=== PATIENT | male | born 1960 | race Caucasian/White ===

== ENCOUNTER → 2017-12-27 | Outpatient (CLI) | payer BC ==
--- NOTE | 2017-12-27 20:37 | CONS ---
CONSULTATION REASON FOR EVALUATION: Sleep apnea. I am seeing this patient after 4 years of interruption. The patient was diagnosed having obstructive sleep apnea back in 2013 and at that time, the patient had an AHI of 92 consistent with severe disease and was offered a CPAP machine at a pressure of 11 cm of water. Over the past 4 years the patient has been getting his supplies on a regular basis. He has been very compliant with CPAP machine. He has gained around 20 pounds. His compliance data showed that the patient has been averaging around 7 hours and 36 minutes on his CPAP every night and his CPAP use for more than 4 hours is 100%. He is looking for a followup and a different mask interface and currently is using a Contreras FX nose pillow. No other new onset medical problems or comorbidities and his condition has been essentially stable over the past 4 years. No restlessness lower extremities. No sleep paralysis. No hallucinations. No nightmares. No sleepwalking or sleep talking. No anxiety. No depression. No other complaints otherwise. PAST MEDICAL HISTORY: 1. Obstructive sleep apnea. Detailed discussed above. His disease has been severe with a baseline AHI of 92. 2. Hyperlipidemia. 3. Hypertension. 4. Obesity. 5. Coronary artery disease. PAST SURGICAL HISTORY: Cardiac catheterization, previous insertion of a coronary stent. SOCIAL HISTORY: The patient is a nonsmoker. No history of alcohol. No IV drugs. OUTPATIENT MEDICATION LIST: Includes Coreg, Zocor, Plavix, lisinopril, folic acid, aspirin and vitamin D. FAMILY HISTORY: The patient has negative history for any sleep breathing disorder. No family history of narcolepsy. REVIEW OF SYSTEMS: 12-point review of system was done and positive findings are mentioned above in history of present illness. His current [place] score is at 3. No fever or chills. Positive weight gain in the order of 20 pounds over the past 4 years. No snoring while on the CPAP machine. No falling asleep while driving or doing activities of day-to-day life. PHYSICAL EXAMINATION: BP is 135/93, pulse 82, respirations 16, temperature 98.0. Saturation 97% on room air. Weight is 241. Height is 6 0 and neck size 18 inches. General appearance: Calm comfortable. Head is atraumatic, normocephalic. Neck is short. Mallampati class IV. There is no goiter or neck mass. LUNGS: Diminished breath sounds bilaterally otherwise clear. HEART: Sounds regular rhythm. Normal S1, S2. No S3. No murmurs. ABDOMEN: Soft, nontender. No organomegaly. EXTREMITIES: No edema. No cyanosis or clubbing. NEUROLOGIC: The patient is alert x3. There is no focal neurological deficits. PSYCHIATRIC: Appropriate mood and affect. Skin is negative for any wounds or ulceration. IMPRESSION: 1. Severe symptomatic obstructive sleep apnea with an AHI of 92 currently on CPAP pressure of 11. Treatment has been successful despite his 20 pounds weight gain over the past 2 years. He is very compliant averaging more than 7 hours of CPAP use per night. 2. Hypersomnia recovered while on CPAP therapy. 3. Obesity with a BMI of 32.6. 4. Coronary artery disease. 5. Hypertension. 6. Hyperlipidemia. PLAN: 1. We will fit this patient to an AirFit P10 nose mask/pillow medium size. 2. Renew his CPAP supplies including tubing filters and head gear. 3. Encourage weight loss. 4. His compliant and treatment has been successful and we will see him back in a year's time, earlier if needed. [id number] / JANESN: [id number] /
== END | disposition home or self-care (01) ==
LOC: SLEEP 12:57
PROVIDERS: ATTEND Internal Medicine Critical Care Medicine
DX: G47.33 Obstructive sleep apnea (adult) (pediatric) (principal); G47.10 Hypersomnia, unspecified; E66.9 Obesity, unspecified; I25.10 Atherosclerotic heart disease of native coronary artery without angina pectoris; I10 Essential (primary) hypertension; E78.5 Hyperlipidemia, unspecified; Z99.89 Dependence on other enabling machines and devices; Z79.899 Other long term (current) drug therapy; Z79.82 Long term (current) use of aspirin; Z68.32 Body mass index [BMI] 32.0-32.9, adult
CPT/HCPCS: 99211

== ENCOUNTER → 2018-03-15 | Outpatient (CLI) | payer BC ==
--- NOTE | 2018-03-15 14:35 | CT ---
EXAMINATION TYPE: CT abdomen pelvis w con DATE OF EXAM: 03/15/2018 COMPARISON: NONE HISTORY: Patient complains of RLQ pain. CT DLP: 1881 mGycm CONTRAST: CT scan of the abdomen and pelvis is performed with Oral Contrast and with IV Contrast, patient injec rigoberto with 100 mL of Isovue 300. FINDINGS: LUNG BASES-: No visible nodule. No infiltrate. LIVER/GB: No calcified gallstones. No space occupying hepatic lesion. Biliary tree is of normal ca liber. PANCREAS: No inflammation. No distinct mass. SPLEEN: No splenic enlargement. No lesion seen. ADRENALS: No nodule. No thickening. KIDNEYS/BLADDER: No hydronephrosis. No nephrolithiasis. No distinct renal mass. Urinary bladder g rossly unremarkable. BOWEL: Normal appendix. Normal bowel caliber. No inflammation. GENITAL ORGANS: No gross abnormality. LYMPH NODES: No greater than 1cm abdominal or pelvic lymph nodes are appreciated. AORTA: No significant abnormality. OSSEOUS STRUCTURES: No significant abnormality is seen. OTHER: Right perianal wall thickening may reflect cellulitis. No visible abscess at this time. IMPRESSION: 1. Right perianal cellulitis without abscess at this time.
== END | disposition home or self-care (01) ==
LOC: RADCTMAIN 11:52
PROVIDERS: ATTEND Internal Medicine
DX: L03.315 Cellulitis of perineum (principal)
CPT/HCPCS: 74177; Q9967

== ENCOUNTER 2019-09-16 19:42 | Observation (INO) | payer BC ==
[2019-09-16] MEDS ORDERED: ASPIRIN 81 MG PO STA (20:53)
[2019-09-16 21:25] LABS: HCT 45.9 % (39.0-53.0); HGB 15.8 gm/dL (13.0-17.5); MCH 32.7 pg (25.0-35.0); MCHC 34.3 g/dL (31.0-37.0); MCV 95.1 fL (80.0-100.0); Mean Platelet Volume 6.9; Platelet Count 153 k/uL (150-450); RBC 4.83 m/uL (4.30-5.90); RDW 12.1 % (11.5-15.5); WBC 4.4 k/uL (3.8-10.6)
--- NOTE | 2019-09-16 21:31 | XR ---
EXAMINATION TYPE: XR chest 2V DATE OF EXAM: 09/16/2019 COMPARISON: To 414 HISTORY: Cough TECHNIQUE: 2 views FINDINGS: Heart is normal. Lungs are clear of infiltrate. Costophrenic angles are clear. There are ch est leads. Bony thorax is intact. IMPRESSION: No active cardiopulmonary disease. Normal heart.
[2019-09-16 21:33] LABS: ALT 74 U/L (4-49); AST 69 U/L (17-59); African American GFR (CKD) >90 (>60 ml/min/1.73 sqM); Albumin 4.5 g/dL (3.5-5.0); Alkaline Phosphatase 54 U/L (38-126); Anion Gap 10 mmol/L; Blood Urea Nitrogen 13 mg/dL (9-20); Calcium 9.5 mg/dL (8.4-10.2); Carbon Dioxide 29 mmol/L (22-30); Chloride 95 mmol/L (98-107); Glucose 118 mg/dL (74-99); Non-African American GFR(CKD) 78 (>60 ml/min/1.73 sqM); Potassium 4.1 mmol/L (3.5-5.1); Sodium 134 mmol/L (137-145); Total Bilirubin 0.9 mg/dL (0.2-1.3); Total Protein 7.4 g/dL (6.3-8.2)
[2019-09-16 21:36] LABS: INR 1.1 (<1.2); Partial Thromboplastin Time 27.2 sec (22.0-30.0); Prothrombin Time 11.5 sec (9.0-12.0)
[2019-09-16 22:01] VITALS: RESP 18
[2019-09-16] MEDS ORDERED: ACETAMINOPHEN TAB 325 MG TAB PO STA (22:01)
[2019-09-16] MEDS ORDERED: SODIUM CHLORIDE 0.9% 500 ML 500 ML IV STA (22:30)
[2019-09-16 22:37] LABS: Band Neutrophils % 11 %; Lymphocytes # (M) 0.31 k/uL (1.0-4.8); Monocytes # (M) 0.66 k/uL (0-1.0); Neutrophils % (M) 67 %; Nucleated Red Blood Cells 0 /100 WBC (0-0); Total Cells Counted 100
[2019-09-16 22:41] LABS: Appearance,Urine Clear (Clear); Bilirubin,Urine Negative (Negative); Blood,Urine Trace (Negative); Color,Urine Yellow; Glucose,Urine (UA) Negative (Negative); Ketones,Urine 1+ (Negative); Leukocyte Esterase,Urine Negative (Negative); Mucus,Urine Rare /hpf; Nitrite,Urine Negative (Negative); PH, Urine 5.5 (5.0-8.0); Protein,Urine Negative (Negative); RBC,Urine <1 /hpf (0-5); Specific Gravity,Urine 1.018 (1.001-1.035); Urobilinogen,Urine <2.0 mg/dL (<2.0)
[2019-09-16] MEDS ORDERED: NITROGLYCERIN SL TABS 0.4 MG TAB SUBLINGUAL PRN (22:51)
--- NOTE | 2019-09-16 22:59 | ED ---
General Adult HPI - General Chief complaint: Chest Pain Stated complaint: Shoulder pain Time Seen by Provider: 09/16/19 20:29 Source: patient, RN notes reviewed, old records reviewed Mode of arrival: ambulatory Limitations: no limitations - History of Present Illness Initial comments: 58-year-old male patient with past history significant for myocardial infarction in 2000 and stent placement presents to ED for chief complaint of right shoulder dull pain, vision reports the pain has radiated down his right parasternal region once or twice but is generally in the right shoulder. Patient reports that these are similar symptoms that he had when he presented to the hospital in 2000. Patient also reports he has had some mild cough and congestion the last few days. Reports that his children have upper respiratory infections. Denies any other complaints at this time. Reports his breathing at baseline. Systemic: Pt denies fatigue, fever/chills, rash. Pt denies weakness, night sweats, weight loss. Neuro: Pt denies headache, visual disturbances, syncope or pre-syncope. HEENT: Pt denies ocular discharge or irritation, otalgia, rhinorrhea, pharyn gitis or notable lymphadenopathy. Cardiopulmonary: Pt denies chest pain, SOB, heart palpitations, dyspnea on exertion. Abdominal/GI: Pt denies abdominal pain, n/v/d. : Pt denies dysuria, burning w/ urination, frequency/urgency. Denies new onset urinary or bowel incontinence. MSK: Pt denies myalgia, loss of strength or function in extremities. Neuro: Pt denies new onset weakness, paresthesias. - Related Data Home Medications Medication Instructions Recorded Confirmed Aspirin 81 mg PO DAILY 12/27/14 12/27/14 Carvedilol Phosphate [Coreg Cr] 10 mg PO HS 12/27/14 12/27/14 Clopidogrel [Plavix] 75 mg PO DAILY 12/27/14 12/27/14 Folic Acid 1 mg PO DAILY 12/27/14 12/27/14 Lisinopril [Prinivil] 20 mg PO HS 12/27/14 12/27/14 Simvastatin [Zocor] 40 mg PO HS 12/27/14 12/27/14 Allergies Allergy/AdvReac Type Severity Reaction Status Date / Time Penicillins Allergy Unknown Verified 09/16/19 19:56 Childhood Sulfa (Sulfonamide Allergy Rash/Hives Verified 12/29/19 19:56 Antibiotics) Review of Systems ROS Statement: Those systems with pertinent positive or pertinent negative responses have been documented in the HPI. ROS Other: All systems not noted in ROS Statement are negative. Past Medical History Past Medical History: Hypertension, Myocardial Infarction ([place]), Sleep Ap jacinto/CPAP/BIPAP Additional Past Medical History / Comment(s): uses CPAP, hx colon polyp Last Myocardial Infarction Date:: 2000 History of Any Multi-Drug Resistant Organisms: None Reported Past Surgical History: Heart Catheterization With Stent, Tonsillectomy Past Anesthesia/Blood Transfusion Reactions: No Reported Reaction Date of Last Stent Placement:: 2000 Smoking Status: Never smoker General Exam - General Exam Comments Initial Comments: Constitutional: NAD, AOX3, Pt has pleasant affect. HEENT: NC/AT, trachea midline, neck supple, no lymphadenopathy. Posterior pharynx non erythematous, without exudates. External ears appear normal, without discharge. Mucous membranes moist. Eyes PERRLA, EOM intact. There is no scleral icterus. No pallor noted. Cardiopulmonary: RRR, no murmurs, rubs or gallops, no JVD noted. Lungs CTAB in anterior and posterior oakes. No peripheral edema. Abdominal exam: Abdomen soft and non-distended. Abdomen non-tender to palpation in all 4 quadrants. Bowel sounds active in LLQ. No hepatosplenomegaly. No ecc hymosis Neuro: CN II-XII grossly intact. No nuchal rigidity. No raccon eyes, no gresham sign, no hemotympanum. No cervical spinal tenderness. MSK: No posterior calf tenderness bilaterally, homans sign negative bilaterally. Posterior tibialis and radial pulse +2 bilaterally. Sensation intact in upper and lower extremities. Full active ROM in upper and lower extremities, 5/5 stregnth. Limitations: no limitations Course Vital Signs 09/16/19 09/16/19 19:53 22:00 Temperature 99.8 F H 101.7 F H Pulse Rate 107 H 101 H Respiratory 20 18 Rate Blood Pressure 139/82 103/73 O2 Sat by Pulse 96 94 L Oximetry Medical Decision Making - Medical Decision Making 58-year-old male patient with past history significant for myocardial infarction in 2000 and stent placement presents to ED for chief complaint of right shoulder dull pain, vision reports the pain has radiated down his right parasternal region once or twice but is generally in the right shoulder. Patient reports that these are similar symptoms that he had when he presented to the hospital in 2000. Patient also reports he has had some mild cough and congestion the last few days. Reports that his children have upper respiratory infections. Denies any other complaints at this time. Reports his breathing at baseline. Vital signs a mild fever, patient administered antipyretic. Physical exam didn't display acute pathology. Laboratory investigations are overall unremarkable. Troponin is negative. Influenza is negative. Chest good negative. Patient be admitted for serial troponins, ACS rule out, fever. Case discussed with Dr. Nickerson. - Lab Data Result diagrams: 09/16/19 21:09/16/19 21: Lab Results 09/16/19 09/16/19 09/16/19 Range/Units 21: 21: 21: WBC 4.4 (3.8-10.6) k/uL RBC 4.83 (4.30-5.90) m/uL Hgb 15.8 (13.0-17.5) gm/dL Hct 45.9 (39.0-53.0) % MCV 95.1 (80.0-100.0) fL MCH 32.7 (25.0-35.0) pg MCHC 34.3 (31.0-37.0) g/dL RDW 12.1 (11.5-15.5) % Plt Count 153 (150-450) k/uL Neutrophils % (Manual) 67 % Band Neutrophils % 11 % Lymphocytes % (Manual) 7 % Monocytes % (Manual) 15 % Neutrophils # (Manual) 3.40 (1.3-7.7) k/uL Lymphocytes # (Manual) 0.31 L (1.0-4.8) k/uL Monocytes # (Manual) 0.66 (0-1.0) k/uL Nucleated RBCs 0 (0-0) /100 WBC Manual Slide Review Performed PT 11.5 (9.0-12.0) sec INR 1.1 (<1.2) APTT 27.2 (22.0-30.0) sec Sodium 134 L (137-145) mmol/L Potassium 4.1 (3.5-5.1) mmol/L Chloride 95 L (98-107) mmol/L Carbon Dioxide 29 (22-30) mmol/L Anion Gap 10 mmol/L BUN 13 (9-20) mg/dL Creatinine 1.06 (0.66-1.25) mg/dL Est GFR (CKD-EPI)AfAm >90 (>60 ml/min/1.73 sqM) Est GFR (CKD-EPI)NonAf 78 (>60 ml/min/1.73 sqM) Glucose 118 H (74-99) mg/dL Calcium 9.5 (8.4-10.2) mg/dL Total Bilirubin 0.9 (0.2-1.3) mg/dL AST 69 H (17-59) U/L ALT 74 H (4-49) U/L Alkaline Phosphatase 54 (38-126) U/L Troponin I (0.000-0.034) ng/mL Total Protein 7.4 (6.3-8.2) g/dL Albumin 4.5 (3.5-5.0) g/dL Urine Color Urine Appearance (Clear) Urine pH (5.0-8.0) Ur Specific [place] (1.001-1.035) Urine Protein (Negative) Urine Glucose (UA) (Negative) Urine Ketones (Negative) Urine Blood (Negative) Urine Nitrite (Negative) Urine Bilirubin (Negative) Urine Urobilinogen (<2.0) mg/dL Ur Leukocyte Esterase (Negative) Urine RBC (0-5) /hpf Urine Mucus (None) /hpf Influenza Type A RNA (Not Detectd) Influenza Type B (PCR) (Not Detectd) 09/16/19 09/16/19 09/16/19 Range/Units 21:01 21:01 22:33 WBC (3.8-10.6) k/uL RBC (4.30-5.90) m/uL Hgb (13.0-17.5) gm/dL Hct (39.0-53.0) % MCV (80.0-100.0) fL MCH (25.0-35.0) pg MCHC (31.0-37.0) g/dL RDW (11.5-15.5) % Plt Count (150-450) k/uL Neutrophils % (Manual) % Band Neutrophils % % Lymphocytes % (Manual) % Monocytes % (Manual) % Neutrophils # (Manual) (1.3-7.7) k/uL Lymphocytes # (Manual) (1.0-4.8) k/uL Monocytes # (Manual) (0-1.0) k/uL Nucleated RBCs (0-0) /100 WBC Manual Slide Review PT (9.0-12.0) sec INR (<1.2) APTT (22.0-30.0) sec Sodium (137-145) mmol/L Potassium (3.5-5.1) mmol/L Chloride (98-107) mmol/L Carbon Dioxide (22-30) mmol/L Anion Gap mmol/L BUN (9-20) mg/dL Creatinine (0.66-1.25) mg/dL Est GFR (CKD-EPI)AfAm (>60 ml/min/1.73 sqM) Est GFR (CKD-EPI)NonAf (>60 ml/min/1.73 sqM) Glucose (74-99) mg/dL Calcium (8.4-10.2) mg/dL Total Bilirubin (0.2-1.3) mg/dL AST (17-59) U/L ALT (4-49) U/L Alkaline Phosphatase (38-126) U/L Troponin I <0.012 (0.000-0.034) ng/mL Total Protein (6.3-8.2) g/dL Albumin (3.5-5.0) g/dL Urine Color Yellow Urine Appearance Clear (Clear) Urine pH 5.5 (5.0-8.0) Ur Specific [place] 1.018 (1.001-1.035) Urine Protein Negative (Negative) Urine Glucose (UA) Negative (Negative) Urine Ketones 1+ H (Negative) Urine Blood Trace H (Negative) Urine Nitrite Negative (Negative) Urine Bilirubin Negative (Negative) Urine Urobilinogen <2.0 (<2.0) mg/dL Ur Leukocyte Esterase Negative (Negative) Urine RBC <1 (0-5) /hpf Urine Mucus Rare H (None) /hpf Influenza Type A RNA Not Detected (Not Detectd) Influenza Type B (PCR) Not Detected (Not Detectd) - EKG Data -: EKG Interpreted by Me (and Dr. Nickerson) EKG Comments: 1) ventricular 106, when necessary for 172, QRS 84, QT/QTC 314 since 417. Sinus tachycardia, possible left atrial enlargement, septal infarct age undetermined. No concern for acute ischemia at this time. 2) ventricular 103, para insulin 78, QRS 84, QT/QTC 320 since 419. Sinus tachycardia, left axis deviation, septal infarct age interment. Abnormal EKG. No concern for acute ischemia this time. Disposition Clinical Impression: Shoulder pain, Fever Narrative: Rule out ACS equivalent Disposition: ADMITTED IP TO THIS HOSP Condition: Serious Is patient prescribed a controlled substance at d/c from ED?: No Referrals: Brayan Veras MD [Primary Care Provider] - 1-2 days
--- NOTE | 2019-09-17 01:40 | P.HPIM ---
History of Present Illness H&P Date: 09/17/19 The patient is a 58 yo M with a PMH of CAD ([place] in 2000 s/p 1 stent), HTN, and JUSTIN on CPAP presented to the ED with complaints of right shoulder pain since 4 PM today. The patient notes that the pain was 9/10 initially, with radiation to his right chest, non-exertional, with no associated symptoms. The patient denied SOB, nausea, vomiting, diaphoresis, or dizziness. He reported having similar symptoms in 2000 when he suffered an IA. At time of the interview, patient noted his pain had improved significantly to a 1/10. Patient notes that for the past 2 days, he had been feeling lethargic and had poor appetite. He notes that some of his family members have been suffering from colds, though he denied any cold symptoms including congestion, cough, runny nose, or facial pain. The patient underwent an extensive evaluation in the emergency room. The patient had a T-max of 101.7 with pulse of 107 and BP 108/74, with SpO2 94% on RA. EKG revealed a sinus tachycardia @ 106 bpm with CXR that was unremarkable. Laboratory evaluation revealed a Troponin of < 0.012, Influenza negative, WBC count of 4.4, hemoglobin 15.8, platelet 153, AST 69, ALT 74, sodium 134, potassium 4.1, chloride 95, CO2 29, BUN 13, creatinine 1.06, and glucose 118. UA was unremarkable. Review of Systems Pertinent positives and negatives as discussed in HPI, a complete review of systems was performed and all other systems are negative. Past Medical History Past Medical History: Hypertension, Myocardial Infarction ([place]), Sleep Apnea/CPAP/BIPAP Additional Past Medical History / Comment(s): uses CPAP, hx colon polyp Last Myocardial Infarction Date:: 2000 History of Any Multi-Drug Resistant Organisms: None Reported Past Surgical History: Heart Catheterization With Stent, Tonsillectomy Past Anesthesia/Blood Transfusion Reactions: No Reported Reaction Date of Last Stent Placement:: 2000 Smoking Status: Never smoker - Past Family History Father Family Medical History: Myocardial Infarction ([place]) Mother Family Medical History: No Reported History Medications and Allergies Home Medications Medication Instructions Recorded Confirmed Type Aspirin 81 mg PO HS 12/27/14 09/17/19 History Carvedilol Phosphate [Coreg Cr] 10 mg PO HS 12/27/14 09/17/19 History Clopidogrel [Plavix] 75 mg PO HS 12/27/14 09/17/19 History Folic Acid 1 mg PO HS 12/27/14 09/17/19 History Lisinopril [Prinivil] 20 mg PO HS 12/27/14 09/17/19 History Simvastatin [Zocor] 40 mg PO HS 12/27/14 09/17/19 History Allergies Allergy/AdvReac Type Severity Reaction Status Date / Time Penicillins Allergy Unknown Verified 09/17/19 00:30 Childhood Sulfa (Sulfonamide Allergy Rash/Hives Verified 09/17/19 00:30 Antibiotics) Physical Exam Vitals: Vital Signs Temp Pulse Resp BP Pulse Ox 09/16/19 22:55 99.3 F 96 18 108/74 94 L 09/16/19 22:00 101.7 F H 101 H 18 103/73 94 L 09/16/19 19:53 99.8 F H 107 H 20 139/82 96 Intake and Output 09/16/19 09/16/19 09/17/19 14:59 22:59 06:59 Other: # Voids 1 Weight 111.13 kg General: non toxic, no distress, appears at stated age, obese Derm: no unusual rashes/lesions no unusual ecchymoses, warm, dry Head: atraumatic, normocephalic, symmetric Eyes: EOMI, no lid lag, anicteric sclera, pupils equal round reactive to light ENT: Nose and ears atraumatic, no thrush, no pharyngeal erythema Neck: No thyromegaly, no cervical lymphadenopathy, trachea midline, supple Mouth: no lip lesion, mucus membranes moist Cardiovascular: S1S2 reg, no murmur, positive posterior tibial pulse bilateral, no edema, capillary refill less than 2 seconds Lungs: CTA bilateral, no rhonchi, no rales , no accessory muscle use Abdominal: soft, nontender to palpation, no guarding, no appreciable organomegaly, normal bowel sounds Ext: no gross muscle atrophy, muscle strength 5 out of 5 in all 4 extremities grossly, no contractures, Neuro: CN II-XI grossly intact, light touch intact all 4 extremities, finger to nose within normal limits, Psych: Alert, oriented, appropriate affect Results CBC & Chem 7: 09/16/19 21:01 09/16/19 21:01 Labs: Abnormal Lab Results - Last 24 Hours (Table) 09/16/19 09/16/19 09/16/19 Range/Units 21:01 21:01 22:33 Lymphocytes # (Manual) 0.31 L (1.0-4.8) k/uL Sodium 134 L (137-145) mmol/L Chloride 95 L (98-107) mmol/L Glucose 118 H (74-99) mg/dL AST 69 H (17-59) U/L ALT 74 H (4-49) U/L Urine Ketones 1+ H (Negative) Urine Blood Trace H (Negative) Urine Mucus Rare H (None) /hpf Assessment and Plan Plan: Chest pain, r/o ACS -C/w aspirin, plavix, statin -Cardiology consult -Trend troponin -Cardiac monitoring Fever -Possibly viral URI -Monitor for now Deranged LFTs -Unclear etiology, possibly secondary to current viral infection vs ORTIZ -Obtain RUQ US -Monitor for now HTN -Hold antihypertensives in setting of borderline BP JUSTIN -C/w CPAP DVT prophylaxis -Heparin The patient is admitted with an anticipated less than 2 midnight stay for ev aluation of chest pain CODE STATUS: Full Code Discussed with: Patient Anticipated discharge date: 1-[address]: Home A total of 35 minutes was spent on the care of this complex patient more than 50% of the time was spent in counseling and care coordination.
[2019-09-17] MEDS ORDERED: CLOPIDOGREL 75 MG TAB PO ONE (01:45)
[2019-09-17] MEDS ORDERED: ATORVASTATIN 80 MG TAB PO ONE (01:45)
[2019-09-17] MEDS: ACETAMINOPHEN TAB 325 MG TAB PO PRN ×2 (03:48→11:14)
[2019-09-17] MEDS: SODIUM CHLORIDE 0.9% 1,000 ML IV SCH ×2 (03:53→13:55)
[2019-09-17 04:23] LABS: ALT 68 U/L (4-49); AST 72 U/L (17-59); African American GFR (CKD) >90 (>60 ml/min/1.73 sqM); Albumin 4.2 g/dL (3.5-5.0); Alkaline Phosphatase 45 U/L (38-126); Anion Gap 11 mmol/L; Blood Urea Nitrogen 14 mg/dL (9-20); Calcium 9.3 mg/dL (8.4-10.2); Carbon Dioxide 25 mmol/L (22-30); Chloride 98 mmol/L (98-107); Glucose 119 mg/dL (74-99); Non-African American GFR(CKD) 84 (>60 ml/min/1.73 sqM); Potassium 3.6 mmol/L (3.5-5.1); Sodium 134 mmol/L (137-145); Total Bilirubin 0.9 mg/dL (0.2-1.3); Total Protein 6.9 g/dL (6.3-8.2)
[2019-09-17 04:34] LABS: Cholesterol 121 mg/dL (<200); HDL Cholesterol 40 mg/dL (40-60); LDL Cholesterol,Calculated 50 mg/dL (0-99); Triglycerides 153 mg/dL (<150)
--- NOTE | 2019-09-17 08:18 | CONS ---
CONSULTATION Mr. Espinal is a 58-year-old male with known history of hypertension, hyperlipidemia, known history of coronary artery disease who has sustained a myocardial infarction and received one stent in 2000. Details of that procedure is unavailable to me. Patient has underwent the procedure at [facility] who presented with initially symptoms of dizziness. The dizziness occurred over Tuesday and Tuesday and early Tuesday and Tuesday night he had discomfort in the right shoulder that woke him up from sleep. For the last few days he has not been feeling well. He has been feeling fatigued with lack of energy. He usually exercises at the [facility] on a regular basis and has no associated symptoms until Tuesday when he did not feel too well. The right shoulder discomfort was not positional and not associated with any dyspnea or palpitation. He has no PND, orthopnea, or peripheral edema. His coronary risk factors are remarkable for the history of hypertension and hyperlipidemia. MEDICATIONS: His medications at home include Coreg 10 mg daily, aspirin once a day, lisinopril 20 mg daily, folic acid, Plavix 75 mg daily, and simvastatin 40 mg daily. REVIEW OF SYSTEMS: RESPIRATORY SYSTEM: He has no recent wheezing. No cough. No fever. No history of documented obstructive lung disease. GI SYSTEM: No recent GI bleeding. No peptic ulcer disease. No nausea. No vomiting. SYSTEM: No dysuria or hematuria. NERVOUS SYSTEM: No stroke or seizure. PHYSICAL EXAMINATION: A 58-year-old male, alert, oriented, in no apparent distress. Blood pressure 110/70 with the heart rate in the 90s, temperature 101.5. HEAD: Normocephalic. EYES: Sclerae anicteric. NECK: Good carotid upstroke. No bruit. No jugular venous distention. LUNGS: Clear to auscultation. HEART: Regular rate and rhythm. S1, S2. No S3. No S4. No murmur or rub. ABDOMEN: Soft, nontender. Positive bowel sounds. No organomegaly. EXTREMITIES: No edema. Intact distal pulses. LAB DATA: Lab data revealed a BUN and creatinine of 14 and 0.99. Troponin of less than 0.012. Cholesterol of 121 with an LDL of 50. AST of 72, ALT of 68. Hemoglobin of 15.8, white blood cell of 4.4. EKG revealed sinus mechanism with left axis deviation poor R progression connects with anteroseptal myocardial infarction. Chest x-ray revealed no acute infiltrate. IMPRESSION: 1. Shoulder discomfort, atypical for ischemic heart disease probably noncardiac. 2. Febrile episode, etiology unclear with elevated liver function tests. According to the patient, he had some elevation of liver function tests in the past related to his statin treatment. 3. History of coronary artery disease. 4. Hypertension. 5. Hyperlipidemia. RECOMMENDATION: From the cardiac standpoint, I will obtain echocardiogram with Doppler. I will also obtain ultrasound of the right upper quadrant to rule out any evidence of cholelithiasis and depending on the rest of the testing, further recommendations will be made. Thank you for this consult. We will follow with you. STACY / IJN: [id number] /
[2019-09-17] MEDS ORDERED: ASPIRIN 81 MG PO SCH (09:00)
[2019-09-17] MEDS ORDERED: HEPARIN SODIUM,PORCINE 5,000 UNIT/ML 1 ML VIAL SQ SCH (09:00)
[2019-09-17] MEDS ORDERED: ASPIRIN 325 MG TAB PO SCH (09:00)
[2019-09-17] MEDS ORDERED: CLOPIDOGREL 75 MG TAB PO SCH (09:00)
--- NOTE | 2019-09-17 11:14 | US ---
EXAMINATION TYPE: US abdomen limited DATE OF EXAM: 09/17/2019 COMPARISON: NONE CLINICAL HISTORY: RUQ, abnormal LFTs. EXAM MEASUREMENTS: Liver Length: 18.7 cm Gallbladder Wall: 0.1 cm CBD: 0.5 cm Right Kidney: 12.8 x 4.2 x 5.7 cm Patient of large body habitus. Pancreas: Obscured by bowel gas Liver: left lobe partially obscured by bowel gas, increased attenuation, measures large Gallbladder: wnl CBD: wnl Right Kidney: parapelvic cysts noted, measures large IMPRESSION: 1. Hepatomegaly and increased pattern to the liver which can be associated with hepatic steatosis, he patocellular disease or hepatitis.
[2019-09-17 11:49] VITALS: BP 115/69; PULSE 85; TEMP 100.2
--- NOTE | 2019-09-17 13:31 | ECHOF ---
Referral Reason:chest pain MEASUREMENTS -------- HEIGHT: 182.9 cm WEIGHT: 111.1 kg BP: 110/70 RVIDd: 2.9 cm (< 3.3) IVSd: 1.4 cm (0.6 - 1.1) LVIDd: 4.9 cm (3.9 - 5.3) LVPWd: 1.4 cm (0.6 - 1.1) IVSs: 1.8 cm LVIDs: 3.8 cm LVPWs: 1.8 cm LA Diam: 3.7 cm (2.7 - 3.8) LAESV Index (A-L): 20.21 ml/m Ao Diam: 3.7 cm (2.0 - 3.7) AV Cusp: 2.4 cm (1.5 - 2.6) MV EXCURSION: 20.130 mm (> 18.000) MV EF SLOPE: 94 mm/s (70 - 150) EPSS: 0.8 cm MV E Manoj: 0.96 m/s MV DecT: 185 ms MV A Manoj: 0.76 m/s MV E/A Ratio: 1.27 RAP: 5.00 mmHg RVSP: 15.73 mmHg TAPSE: 17.66 mm FINDINGS -------- Sinus rhythm. This was a technically difficult study with suboptimal views. The left ventricular size is normal. There is moderate concentric left ventricular hypertrophy. O verall left ventricular systolic function is normal with, an EF between 55 - 60 %. The right ventricle is normal in size. Normal LA size by volume 22+/-6 ml/m2. The right atrial size is normal. 5 ml of Lumason was utilized for enhancement of images. Interatrial and interventricular septum intact. The aortic valve is trileaflet, and appears structurally normal. No aortic stenosis or regurgitation. The mitral valve is normal. There is trace to mild mitral regurgitation. Mild tricuspid regurgitation present. Right ventricular systolic pressure is normal at < 35 mmHg. The pulmonic valve was not well visualized. There is no pulmonic regurgitation present. The aortic root size is normal. IVC Not well visulized. There is no pericardial effusion. CONCLUSIONS -------- 1. Sinus rhythm. 2. This was a technically difficult study with suboptimal views. 3. The left ventricular size is normal. 4. There is moderate concentric left ventricular hypertrophy. 5. Overall left ventricular systolic function is normal with, an EF between 55 - 60 %. 6. Normal LA size by volume 22+/-6 ml/m2. 7. 5 ml of Lumason was utilized for enhancement of images. 8. The aortic valve is trileaflet, and appears structurally normal. No aortic stenosis or regurgitati on. 9. The mitral valve is normal. 10. There is trace to mild mitral regurgitation. 11. Mild tricuspid regurgitation present. 12. Right ventricular systolic pressure is normal at < 35 mmHg. 13. The pulmonic valve was not well visualized. 14. There is no pericardial effusion. DOMINATRIX: Loly Campbell RDCS
[2019-09-17] MEDS: CARVEDILOL 3.125 MG TAB PO SCH ×2 (13:51→17:23)
--- NOTE | 2019-09-17 15:24 | P.DS ---
Providers Date of admission: 09/16/19 23:18 Expected date of discharge: 09/17/19 Attending physician: Marcial Cope MD Consults: 09/16/19 22:52 Consult Physician Urgent Consulting Provider: Cami Sandoval Consult Reason/Comments: shoulder pain r/o ACS equivleent Do you want consulting provider notified?: Yes Primary care physician: [facility] Course: 58-year-old male with PMH of CAD post stent, hypertension, JUSTIN on CPAP presented to the ED for right shoulder pain. Patient was noted to have a T-max of 101.7 with a pulse of 107 in the emergency room. EKG showed sinus tachycardia 106 bpm and troponin was less than 0.012. Influenza was negative. Chest x-ray was negative. Patient was admitted for further observation. Troponins have been less than 0.0123 with EKG showing sinus tachycardia. Acute coronary syndrome has been ruled out. Lipid panel was done which showed triglycerides of 153, LDL 50, total cholesterol 121. Cardiology was consulted and recommended echocardiogram. Echocardiogram showed EF 55-60% with moderate concentric LVH. Right upper quadrant ultrasound was ordered due to elevated liver enzymes which showed fatty liver. His fever was attribute it to a possible viral URI as he had symptoms of nasal congestion, cough and runny nose. Patient was seen and examined. No acute events overnight. Patient reports complete resolution of chest pain. He denies any chest pain, shortness of breath or palpitations. No nausea or vomiting. Patient is alert and oriented 3 He is in no acute distress. His head is normocephalic atraumatic. Chest pain likely related to right shoulder pain Fever likely viral URI Transaminitis Hypertension JUSTIN CAD ACS ruled out. Echocardiogram shows EF 55-60% with moderate concentric LVH. Plans: Continue aspirin, Lipitor and Plavix. Continue beta jerel. Follow cardiology recommendations. T-max 101.7 Fahrenheit. Likely viral URI. Chest x-ray negative. Plans: Tylenol as needed for fever and chills. Symptomatic management of viral URI. AST 72, ALT 68. Right upper quadrant ultrasound shows fatty liver. Lipid panel within normal limits except triglyceride of 153. Plans: Dietary modifications. Continue Lipitor. BP 115/69. Plans: Continue beta jerel. Monitor vitals, adjust medications as necessary. Plans: CPAP as needed. Plans: Continue aspirin, Plavix, Lipitor, beta jerel. [Acute coronary syndrome has been ruled out. Plans on DC home today if okay with cardiology.] Pertinent Studies: Chest x-ray, abdominal ultrasound, echocardiogram Patient Condition at Discharge: Stable Plan - Discharge Summary New Discharge Prescriptions: New Acetaminophen Tab [Tylenol] 650 mg PO Q4HR PRN #30 tab PRN Reason: Pain Continue Folic Acid 1 mg PO HS Clopidogrel [Plavix] 75 mg PO HS Aspirin 81 mg PO HS Simvastatin [Zocor] 40 mg PO HS Carvedilol Phosphate [Coreg Cr] 10 mg PO HS Lisinopril-Hctz 20-25 mg [Zestoretic 20-25] 1 tab PO HS Latanoprost [Xalatan 0.005%] 1 drop LEFT EYE HS Cholecalciferol [Vitamin D3 (25 Mcg = 1000 Iu)] 3,000 unit PO HS Roff-3 Fatty Acids/Fish Oil [Fish Oil 1,000 mg Softgel] 1 cap PO HS Discharge Medication List Aspirin 81 mg PO HS 12/27/14 [History] Carvedilol Phosphate [Coreg Cr] 10 mg PO HS 12/27/14 [History] Clopidogrel [Plavix] 75 mg PO HS 12/27/14 [History] Folic Acid 1 mg PO HS 12/27/14 [History] Simvastatin [Zocor] 40 mg PO HS 12/27/14 [History] Acetaminophen Tab [Tylenol] 650 mg PO Q4HR PRN #30 tab 09/17/19 [Rx] Cholecalciferol [Vitamin D3 (25 Mcg = 1000 Iu)] 3,000 unit PO HS 09/17/19 [History] Latanoprost [Xalatan 0.005%] 1 drop LEFT EYE HS 09/17/19 [History] Lisinopril-Hctz 20-25 mg [Zestoretic 20-25] 1 tab PO HS 09/17/19 [History] Roff-3 Fatty Acids/Fish Oil [Fish Oil 1,000 mg Softgel] 1 cap PO HS 09/17/19 [History] Follow up Appointment(s)/Referral(s): Brayan Veras MD [Primary Care Provider] - 1-2 days Activity/Diet/Wound Care/Special Instructions: Diet: Cardiac Follow-up PCP within 3 days of discharge. Take all medications as advised. Come back to the ED or call 911 for worsening chest pain, shortness of breath, palpitations, dizziness. Discharge Disposition: HOME SELF-CARE
[2019-09-18] MEDS ORDERED: ATORVASTATIN 40 MG TAB PO SCH (09:00)
== END 2019-09-17 17:35 | disposition home or self-care (01) ==
LOC: EC 19:42 → 1SOBS 23:18
PROVIDERS: ADMIT Internal Medicine; ATTEND Internal Medicine
DX: R07.9 Chest pain, unspecified (principal); M25.511 Pain in right shoulder; R50.9 Fever, unspecified; I25.10 Atherosclerotic heart disease of native coronary artery without angina pectoris; Z95.5 Presence of coronary angioplasty implant and graft; I25.2 Old myocardial infarction; I10 Essential (primary) hypertension; G47.33 Obstructive sleep apnea (adult) (pediatric); Z99.89 Dependence on other enabling machines and devices; Z86.010 Personal history of colon polyps; K76.0 Fatty (change of) liver, not elsewhere classified; E78.5 Hyperlipidemia, unspecified; R79.89 Other specified abnormal findings of blood chemistry; I08.1 Rheumatic disorders of both mitral and tricuspid valves; Z90.89 Acquired absence of other organs; Z79.02 Long term (current) use of antithrombotics/antiplatelets; Z79.82 Long term (current) use of aspirin; Z79.899 Other long term (current) drug therapy
CPT/HCPCS: 93005 ×2; 96372; 99285; 36415; 93306; 80061; 80053 ×2; 84484 ×2; 85025; 85610; 85730; 81001; 87502; 71046; 76705; G0378 ×2; J1644; Q9950

== ENCOUNTER → 2020-07-04 | Outpatient (CLI) | payer BC ==
--- NOTE | 2020-07-09 10:19 | P.ARTDOP ---
Arterial Doppler LOWER EXTREMITY ARTERIAL DOPPLER: DATE OF SERVICE: 07/04/2020 Reason for study: Foot heaviness. Doppler waveforms: Multiphasic bilaterally throughout. Excellent toe waveforms.. Pulse volume recording: []. Pressure gradients: None. Ankle-brachial indices: Greater than 1 bilaterally. Toe brachial indices: 0.84 on the right, 0.8 on the left Impression: Normal study.
== END | disposition home or self-care (01) ==
LOC: RADUSWWP 07:36
PROVIDERS: ATTEND Internal Medicine
DX: I73.9 Peripheral vascular disease, unspecified (principal)
CPT/HCPCS: 93922

== ENCOUNTER → 2021-10-01 | Outpatient (CLI) | payer BC ==
--- NOTE | 2021-10-02 08:26 | CT ---
EXAMINATION TYPE: CT chest w con DATE OF EXAM: 10/01/2021 COMPARISON: Chest x-ray September 16, 2019 HISTORY: chronic cough CT DLP: 568 mGycm. Automated Exposure Control for Dose Reduction was Utilized. TECHNIQUE: CT scan of the thorax is performed following with IV Contrast, patient injected with 100 mL of Isovue 300. FINDINGS: LUNGS: The lungs are grossly clear, there is no concerning greater than 5 mm noncalcified parenchymal mass or nodule identified. Minimal left basilar linear scarring and/or atelectasis. There is no ple ural effusion or pneumothorax seen. The tracheobronchial tree is patent. MEDIASTINUM: There are no greater than 1 cm hilar or mediastinal lymph nodes. There are some prominen t but subcentimeter prevascular lymph nodes. No cardiomegaly or pericardial effusion is seen. Asce nding aortic aneurysm up to 4.6 cm axial image 32. Aneurysm does not extend into arch or descending a saturnino. There is poor vessel origin from aortic arch which is normal variant OTHER: Liver is diffusely low dense consistent with diffuse fatty infiltration. Spine is straightened on sagittal images. IMPRESSION: No significant acute or chronic pulmonary process. Note is made of 4.6 cm ascending aorti c aneurysm
== END | disposition home or self-care (01) ==
LOC: RADCTMAIN 18:51
PROVIDERS: ATTEND Internal Medicine
DX: R05.3 Chronic cough (principal)
CPT/HCPCS: 71260; Q9967

== ENCOUNTER → 2022-05-05 | Outpatient (CLI) | payer BC ==
--- NOTE | 2022-05-05 11:32 | CT ---
EXAMINATION TYPE: CT angio chest DATE OF EXAM: 05/05/2022 10:03 AM COMPARISON: 10/01/2021 HISTORY: Thoracic aortic aneurysm w/out rupture CT DLP: 1083.80 mGycm Automated exposure control for dose reduction was used. CONTRAST: CTA scan of the thorax is performed with IV Contrast, patient injected with 100 mL of Isovue 370, pul monary embolism protocol. . FINDINGS: LUNGS: The lungs are grossly clear, there is no concerning parenchymal mass or nodule identified. T here is no pleural effusion or pneumothorax seen. The tracheobronchial tree is patent. MEDIASTINUM: There are no greater than 1 cm hilar or mediastinal lymph nodes. There are some prominen t but subcentimeter prevascular lymph nodes. No cardiomegaly or pericardial effusion is seen. Ascendi ng aortic aneurysm up to 4.6 cm stable. There is direct origin of the vertebral artery from the aorti c arch which is a normal variant. Correlate for previous coronary artery stenting. Heart enlarged wit h small pericardial effusion. OTHER: Liver is diffusely low dense consistent with diffuse fatty infiltration. Hypertrophic changes of the spine. Borderline splenomegaly measuring 13.5 cm. IMPRESSION: 1. Stable 4.6 cm ascending aortic aneurysm. 2. Cardiomegaly correlate for coronary artery stenting. Small amount of pericardial effusion. 3. Correlation with hepatic steatosis and borderline to mild splenomegaly.
== END | disposition home or self-care (01) ==
LOC: RADCTMAIN 08:58
PROVIDERS: ATTEND Internal Medicine Interventional Cardiology
DX: I71.2 Thoracic aortic aneurysm, without rupture (principal)
CPT/HCPCS: 71275; Q9967

== ENCOUNTER → 2022-08-23 | Outpatient (CLI) | payer BC ==
--- NOTE | 2022-08-23 08:13 | CT ---
EXAMINATION TYPE: CT brain wo con CT DLP: 1072.3 mGycm, Automated exposure control for dose reduction was used. DATE OF EXAM: 08/23/2022 7:12 AM COMPARISON: None. 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 Pt fell and struck frontal area on floor TECHNIQUE: Brain: Axial CT images of the brain were obtained with coronal and sagittal reformats created and rev iewed. Contrast used: None. Oral contrast used: None. FINDINGS: Brain: Extra-axial spaces: No abnormal extra-axial fluid collections. Ventricular system: Within normal limits Cerebral parenchyma: No acute intraparenchymal hemorrhage or mass effect. The simms-white junction is well differentiated. Cerebellum: Unremarkable. Mass effect: No evidence of midline shift. Intracranial vasculature: unremarkable Soft tissues: Normal. Calvarium/osseous structures: No depressed skull fracture. Paranasal sinuses and mastoid air cells: Mild scattered paranasal sinus disease. Visualized orbits: Bilateral aphakia IMPRESSION: No acute intracranial process.
== END | disposition home or self-care (01) ==
LOC: RADCTMAIN 06:55
PROVIDERS: ATTEND Internal Medicine
DX: G44.329 Chronic post-traumatic headache, not intractable (principal)
CPT/HCPCS: 70450

== ENCOUNTER → 2022-09-04 | Outpatient (CLI) | payer BC ==
--- NOTE | 2022-09-04 15:16 | MR ---
EXAMINATION TYPE: MR lumbar spine wo/w con DATE OF EXAM: 09/04/2022 2:32 PM COMPARISON: CT 03/15/2018. 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 IV Contrast: 12 cc Gadavist. None. FINDINGS: Alignment: The lumbar vertebral bodies have preserved heights and alignment. Cord: The conus medullaris and the distal spinal cord appear unremarkable with regards to their signa l intensity and morphology. No abnormal enhancement. Bones/Discs: Assess for high T2/T1 signal focal fat and/or hemangioma. Multilevel degenerative disc d isease is noted and most pronounced at the L5-S1. Intervertebral disc signal is maintained. No abnormal enhancement. L1-L2: No evidence of significant spinal canal stenosis or neural foraminal stenosis. L2-L3: No evidence of significant spinal canal stenosis or neural foraminal stenosis. L3-L4: No evidence of significant spinal canal stenosis or neural foraminal stenosis. L4-L5: Disc bulge and facet joint arthropathy result in mild spinal canal and moderate bilateral neur al foraminal stenosis. L5-S1: No evidence of significant spinal canal stenosis. Facet joint arthropathy with mild bilateral neural foraminal stenosis. Increased inversion recovery signal around the facet joints at this level. Other findings: Parapelvic left renal cysts IMPRESSION: 1. No definitive evidence of disc herniation or significant spinal canal stenosis. 2. Multilevel disc degeneration with associated osteoarthritic changes worse at L5-S1 with active ed robin around the facet joints of L5-S1.
== END | disposition home or self-care (01) ==
LOC: RADMRIMAIN 13:18
PROVIDERS: ATTEND Internal Medicine
DX: M47.16 Other spondylosis with myelopathy, lumbar region (principal); M51.06 Intervertebral disc disorders with myelopathy, lumbar region; R60.0 Localized edema
CPT/HCPCS: 72158; A9585

== ENCOUNTER 2023-06-03 11:59 | Emergency (ER) | payer BC ==
--- NOTE | 2023-06-03 12:55 | ED ---
General Adult HPI - General Chief complaint: Dizziness Stated complaint: lightheaded,arm numbness Time Seen by Provider: 06/03/23 12:30 Source: patient, RN notes reviewed, old records reviewed Mode of arrival: wheelchair Limitations: no limitations - History of Present Illness Initial comments: This is a 62-year-old male who presents emergency Department complaining that he started having some tingling sensation in his fingers yesterday and today it m mariama up into his hand he has normal sensation and normal strength but the tingling sensation is new per patient also noted today he started having dizziness particularly when driving he felt as though nothing kind of closing in around him but he currently does not have. Patient states he had that same dizziness when he had his heart attack in a stent placed. Patient denies chest pain palpitations difficulty breathing shortness of breath. Patient denies any recent fever chills or cough per patient denies any headache. Patient's states that she thinks his right eye is not moving the way it should altered to the left eye. Patient denies any abdominal pain. Patient denies any nausea v omiting diarrhea. Only symptom currently is tingling sensation the patient's right hand - Related Data Home Medications Medication Instructions Recorded Confirmed Aspirin 81 mg PO HS 12/27/14 09/17/19 Clopidogrel [Plavix] 75 mg PO HS 12/27/14 09/17/19 Folic Acid 1 mg PO HS 12/27/14 09/17/19 Simvastatin [Zocor] 40 mg PO HS 12/27/14 09/17/19 carvediloL phosphate [Coreg Cr] 10 mg PO HS 12/27/14 09/17/19 Cholecalciferol [Vitamin D3 (25 3,000 unit PO HS 09/17/19 09/17/19 Mcg = 1000 Iu)] Latanoprost [Xalatan 0.005%] 1 drop LEFT EYE HS 09/17/19 09/17/19 Lisinopril-Hctz 20-25 mg 1 tab PO HS 09/17/19 09/17/19 [Zestoretic 20-25] [place]-3 Fatty Acids/Fish Oil [Fish 1 cap PO HS 09/17/19 09/17/19 Oil 1,000 mg Softgel] Previous Rx's Medication Instructions Recorded Acetaminophen Tab [Tylenol] 650 mg PO Q4HR PRN #30 tab 09/17/19 Allergies Allergy/AdvReac Type Severity Reaction Status Date / Time Penicillins Allergy Unknown Verified 06/03/23 12:04 Childhood Sulfa (Sulfonamide Allergy Rash/Hives Verified 06/03/23 12:04 Antibiotics) Review of Systems ROS Statement: Those systems with pertinent positive or pertinent negative responses have been documented in the HPI. ROS Other: All systems not noted in ROS Statement are negative. Past Medical History Past Medical History: Hypertension, Myocardial Infarction ([place]), Sleep Apnea/CPAP/BIPAP Additional Past Medical History / Comment(s): uses CPAP, hx colon polyp Last Myocardial Infarction Date:: 2000 History of Any Multi-Drug Resistant Organisms: None Reported Past Surgical History: Heart Catheterization With Stent, Tonsillectomy Additional Past Surgical History / Comment(s): Surgery by his anus, not sure what it was Past Anesthesia/Blood Transfusion Reactions: No Reported Reaction Date of Last Stent Placement:: 2000 Past Psychological History: No Psychological Hx Reported Smoking Status: Never smoker Past Alcohol Use History: Daily Past Drug Use History: None Reported - Past Family History Father Family Medical History: Myocardial Infarction ([place]) Mother Family Medical History: No Reported History General Exam - General Exam Comments Initial Comments: GENERAL: Patient is well-developed and well-nourished. Patient is nontoxic and well- hydrated and is in no acute distress. ENT: Neck is soft and supple. No significant lymphadenopathy is noted. Oropharynx is clear. Moist mucous membranes. Neck has full range of motion without eliciting any pain. There is no thyroid enlargement and no masses were felt. EYES: The sclera were anicteric and conjunctiva were pink and moist. Patient's extraocular motion for both eyes is full range of motion however the right eye appears to not move and synchronous with the left eye. Eyelids were unremar kable. PULMONARY: Unlabored respirations. Good breath sounds bilaterally. No audible rales rhonchi or wheezing was noted. CARDIOVASCULAR: There is a regular rate and rhythm without any murmurs gallops or rubs. ABDOMEN: Soft and nontender with normal bowel sounds. SKIN: Skin is clear with no lesions or rashes and otherwise unremarkable. NEUROLOGIC: Patient is alert and oriented x3. Cranial nerves II through XII are grossly intact. Motor and sensory are also intact. Normal speech, volume and content. Symmetrical smile. MUSCULOSKELETAL: Normal extremities with adequate strength and full range of motion. No lower extremity swelling or edema. No calf tenderness. LYMPHATICS: No significant lymphadenopathy is noted PSYCHIATRIC: Normal psychiatric evaluation. Limitations: no limitations Course Vital Signs 06/03/23 06/03/23 12:02 12:58 Temperature 98.6 F Pulse Rate 94 89 Respiratory 20 18 Rate Blood Pressure 184/98 159/94 O2 Sat by Pulse 99 96 Oximetry Medical Decision Making - Medical Decision Making EKG was interpreted by myself. EKG shows a sinus rhythm at 90 bpm DE interval 270 dresses 92 QT interval 352 QTC is 400 per patient's EKG shows no ST segment elevation or depression. Was pt. sent in by a medical professional or institution (, PA, RESIDENTIAL AIR SEALING TECHNICIAN, urgent care, hospital, or residential...) When possible be specific @ -No Did you speak to anyone other than the patient for history (EMS, parent, family, police, friend...)? What history was obtained from this source @ -No Did you review nursing and triage notes (agree or disagree)? Why? @ -I reviewed and agree with nursing and triage notes Were old charts reviewed (outside hosp., previous admission, EMS record, old EKG, old radiological studies, urgent care reports/EKG's, residential records)? Report findings @ -Prior radiological studies on this patient Differential Diagnosis (chest pain, altered mental status, abdominal pain women, abdominal pain men, vaginal bleeding, weakness, fever, dyspnea, syncope, headache, dizziness, GI bleed, back pain, seizure, CVA, palpatations, mental health, musculoskeletal)? @ -Differential Dizziness: Benign paroxysmal positional Vertigo, Menieres disease, otitis media, acoustic neuroma, vertebrobasilar insufficiency, cerebellar stroke, encephalitis, hypovolemic, arrhythmia, coronary artery syndrome, anemia, this is not meant to be an all-inclusive list EKG interpreted by me (3pts min.). @ -As above X-rays interpreted by me (1pt min.). @ -None done CT interpreted by me (1pt min.). @ -CT of the brain showed no acute abnormality. CT of the chest showed no PE and showed an aortic ascending aneurysm of about 4.4 cm. U/S interpreted by me (1pt. min.). @ -None done What testing was considered but not performed or refused? (CT, X-rays, U/S, lab s)? Why? @ -None What meds were considered but not given or refused? Why? @ -None Did you discuss the management of the patient with other professionals (professionals i.e. , PA, RESIDENTIAL AIR SEALING TECHNICIAN, lab, RT, psych nurse, social service coordinator, insole channeler, teacher, financial officer, rn field case manager)? Give summary @ -I spoke with Dr. Oden and explained the extraocular motion in the right eye was not consistent with the left eye and that came and went he wanted to call the patient up in the office and patient was in agreement with this Was smoking cessation discussed for >3mins.? @ -No Was critical care preformed (if so, how long)? @ -No Were there social determinants of health that impacted care today? How? (Homelessness, low income, unemployed, alcoholism, drug addiction, transportation, low edu. Level, literacy, decrease access to med. care, long-term, rehab)? @ -No Was there de-escalation of care discussed even if they declined (Discuss DNR or withdrawal of care, Hospice)? DNR status @ -No What co-morbidities impacted this encounter? (DM, HTN, Smoking, COPD, CAD, Cancer, CVA, ARF, Chemo, Hep., AIDS, mental health diagnosis, sleep apnea, morbid obesity)? @ -None Was patient admitted / discharged? Hospital course, mention meds given and route, prescriptions, significant lab abnormalities, going to OR and other pertinent info. @ -Patient had no dizziness while in the emergency department. Patient only had the tingling to the right hand. Dr. Oden wanted to follow patient up in the office. Undiagnosed new problem with uncertain prognosis? @ -No Drug Therapy requiring intensive monitoring for toxicity (Heparin, Nitro, Insulin, Cardizem)? @ -No Were any procedures done? @ -No Diagnosis/symptom? @ -Paresthesia Acute, or Chronic, or Acute on Chronic? @ -Acute Uncomplicated (without systemic symptoms) or Complicated (systemic symptoms)? @ -Complicated Side effects of treatment? @ -No Exacerbation, Progression, or Severe Exacerbation? @ -No Poses a threat to life or bodily function? How? (Chest pain, [place], [place], pneumonia, PE, COPD, DKA, ARF, appy, cholecystitis, CVA, Diverticulitis, Homicidal, Suicidal, threat to staff... and all critical care pts) @ -No Diagnosis/symptom? @ -Dizziness Acute, or Chronic, or Acute on Chronic? @ -Acute Uncomplicated (without systemic symptoms) or Complicated (systemic symptoms)? @ -Complicated Side effects of treatment? @ -none Exacerbation, Progression, or Severe Exacerbation] @ -no Poses a threat to life or bodily function? @ -no - Lab Data Result diagrams: 06/03/23 12:57 06/03/23 12:57 Lab Results 06/03/23 06/03/23 06/03/23 Range/Units 12:57 12:57 12:57 WBC 6.6 (3.8-10.6) k/uL RBC 5.30 (4.30-5.90) m/uL Hgb 17.7 H (13.0-17.5) gm/dL Hct 52.8 (39.0-53.0) % MCV 99.7 (80.0-100.0) fL MCH 33.3 (25.0-35.0) pg MCHC 33.4 (31.0-37.0) g/dL RDW 12.9 (11.5-15.5) % Plt Count 200 (150-450) k/uL MPV 7.4 Neutrophils % 59 % Lymphocytes % 23 % Monocytes % 9 % Eosinophils % 5 % Basophils % 0 % Neutrophils # 3.9 (1.3-7.7) k/uL Lymphocytes # 1.5 (1.0-4.8) k/uL Monocytes # 0.6 (0-1.0) k/uL Eosinophils # 0.3 (0-0.7) k/uL Basophils # 0.0 (0-0.2) k/uL PT 11.5 (9.0-12.0) sec INR 1.1 (<1.2) APTT 25.3 (22.0-30.0) sec Sodium 139 (137-145) mmol/L Potassium 4.7 (3.5-5.1) mmol/L Chloride 102 (98-107) mmol/L Carbon Dioxide 28 (22-30) mmol/L Anion Gap 9 mmol/L BUN 15 (9-20) mg/dL Creatinine 0.78 (0.66-1.25) mg/dL Est GFR (CKD-EPI)AfAm >90 (>60 ml/min/1.73 sqM) Est GFR (CKD-EPI)NonAf >90 (>60 ml/min/1.73 sqM) Glucose 108 H (74-99) mg/dL Calcium 9.5 (8.4-10.2) mg/dL Total Bilirubin 0.6 (0.2-1.3) mg/dL AST 75 H (17-59) U/L ALT 76 H (4-49) U/L Alkaline Phosphatase 58 (38-126) U/L Creatine Kinase 76 (55-170) U/L Troponin I (0.000-0.034) ng/mL Total Protein 8.2 (6.3-8.2) g/dL Albumin 4.5 (3.5-5.0) g/dL 06/03/23 Range/Units 12:57 WBC (3.8-10.6) k/uL RBC (4.30-5.90) m/uL Hgb (13.0-17.5) gm/dL Hct (39.0-53.0) % MCV (80.0-100.0) fL MCH (25.0-35.0) pg MCHC (31.0-37.0) g/dL RDW (11.5-15.5) % Plt Count (150-450) k/uL MPV Neutrophils % % Lymphocytes % % Monocytes % % Eosinophils % % Basophils % % Neutrophils # (1.3-7.7) k/uL Lymphocytes # (1.0-4.8) k/uL Monocytes # (0-1.0) k/uL Eosinophils # (0-0.7) k/uL Basophils # (0-0.2) k/uL PT (9.0-12.0) sec INR (<1.2) APTT (22.0-30.0) sec Sodium (137-145) mmol/L Potassium (3.5-5.1) mmol/L Chloride (98-107) mmol/L Carbon Dioxide (22-30) mmol/L Anion Gap mmol/L BUN (9-20) mg/dL Creatinine (0.66-1.25) mg/dL Est GFR (CKD-EPI)AfAm (>60 ml/min/1.73 sqM) Est GFR (CKD-EPI)NonAf (>60 ml/min/1.73 sqM) Glucose (74-99) mg/dL Calcium (8.4-10.2) mg/dL Total Bilirubin (0.2-1.3) mg/dL AST (17-59) U/L ALT (4-49) U/L Alkaline Phosphatase (38-126) U/L Creatine Kinase (55-170) U/L Troponin I <0.012 (0.000-0.034) ng/mL Total Protein (6.3-8.2) g/dL Albumin (3.5-5.0) g/dL Disposition Clinical Impression: Dizziness, Paresthesia Disposition: HOME SELF-CARE Condition: Good Instructions (If sedation given, give patient instructions): Dizziness (ED), Paresthesia (ED) Is patient prescribed a controlled substance at d/c from ED?: No Referrals: Ramos Oden MD [Primary Care Provider] - 1-2 days Time of Disposition: 14:05
[2023-06-03 13:20] LABS: Basophils % (A) 0 %; Eosinophils # (A) 0.3 k/uL (0-0.7); Eosinophils % (A) 5 %; HCT 52.8 % (39.0-53.0); HGB 17.7 gm/dL (13.0-17.5); Lymphocytes # (A) 1.5 k/uL (1.0-4.8); Lymphocytes % (A) 23 %; MCH 33.3 pg (25.0-35.0); MCHC 33.4 g/dL (31.0-37.0); MCV 99.7 fL (80.0-100.0); Mean Platelet Volume 7.4; Monocytes # (A) 0.6 k/uL (0-1.0); Monocytes % (A) 9 %; Neutrophils # (A) 3.9 k/uL (1.3-7.7); Neutrophils % (A) 59 %; Platelet Count 200 k/uL (150-450); RDW 12.9 % (11.5-15.5); WBC 6.6 k/uL (3.8-10.6)
[2023-06-03 13:29] LABS: INR 1.1 (<1.2); Partial Thromboplastin Time 25.3 sec (22.0-30.0); Prothrombin Time 11.5 sec (9.0-12.0)
[2023-06-03 13:33] LABS: ALT 76 U/L (4-49); AST 75 U/L (17-59); African American GFR (CKD) >90 (>60 ml/min/1.73 sqM); Albumin 4.5 g/dL (3.5-5.0); Alkaline Phosphatase 58 U/L (38-126); Anion Gap 9 mmol/L; Blood Urea Nitrogen 15 mg/dL (9-20); Calcium 9.5 mg/dL (8.4-10.2); Carbon Dioxide 28 mmol/L (22-30); Chloride 102 mmol/L (98-107); Creatine Kinase 76 U/L (55-170); Glucose 108 mg/dL (74-99); Non-African American GFR(CKD) >90 (>60 ml/min/1.73 sqM); Potassium 4.7 mmol/L (3.5-5.1); Sodium 139 mmol/L (137-145); Total Bilirubin 0.6 mg/dL (0.2-1.3); Total Protein 8.2 g/dL (6.3-8.2)
--- NOTE | 2023-06-03 13:47 | CT ---
EXAMINATION TYPE: CT brain wo con DATE OF EXAM: 06/03/2023 COMPARISON: 08/23/2022 HISTORY: Lightheaded and arm numbness CT DLP: 1189.[address] of the brain was performed. The ventricles, basal cisterns and sulci overlying the cerebral convexities demonstrate mild enlargem ent. There is no evidence for intracranial hemorrhage or sulcal effacement. There is decreased attenuation about the periventricular white matter and deep white matter of both c erebral hemispheres, compatible with chronic small vessel ischemia. Differential diagnosis does inclu de demyelination. No mass effects are seen.No midline shift. Osseous calvarium is intact. If symptoms persist consider MRI. IMPRESSION: 1. Age related atrophic and chronic small vessel ischemic change without acute intracranial process s een at this time.
--- NOTE | 2023-06-03 13:55 | CT ---
EXAMINATION TYPE: CT chest angio for PE DATE OF EXAM: 06/03/2023 COMPARISON: 05/05/2022 HISTORY: Light headed with arm numbness CT DLP: 758.3 mGycm CONTRAST: CT chest with contrast and 3D reconstruction with MIP imaging is performed without and with IV Contra st, patient injected with 100 ml mL of Isovue 370. Contrast-enhanced CT of the chest was performed through the course of the pulmonary arteries with amparo g and mediastinal window settings submitted. 3D reconstruction with MIP imaging was also performed. PULMONARY ARTERIES: The pulmonary arteries and their major tributaries are patent. I do not see aly dence for sizable filling defect to suggest pulmonary embolic process. LUNGS: The lungs are clear and free of infiltrate. No evidence for atelectasis. No pulmonary nodule or mass is detected. No pleural effusion. MEDIASTINUM: Ascending thoracic aortic aneurysm measuring 4.3 cm AP dimension unchanged from prior st udy. There is evidence of cardiomegaly. No evidence for mediastinal mass. No mediastinal lymph nodes greater than 1cm. HILAR STRUCTURES: No evidence for mass. No hilar lymph nodes greater than 1 cm. UPPER ABDOMEN: No significant abnormality is seen. IMPRESSION: 1. No evidence for Pulmonary embolism at this time.
[2023-06-03 15:29] VITALS: PULSE 89; RESP 18; TEMP 98.6
[2023-06-03 16:10] VITALS: BP 133/87
== END 2023-06-03 16:09 | disposition home or self-care (01) ==
LOC: EC 11:59
DX: R42 Dizziness and giddiness (principal); R20.2 Paresthesia of skin; I10 Essential (primary) hypertension; I25.2 Old myocardial infarction; Z88.0 Allergy status to penicillin; Z88.2 Allergy status to sulfonamides; Z79.82 Long term (current) use of aspirin; Z79.02 Long term (current) use of antithrombotics/antiplatelets; Z79.899 Other long term (current) drug therapy
CPT/HCPCS: 99284; 36415; 93005; 80053; 82550; 84484; 85025; 85610; 85730; 70450; 71275; Q9967